=== PATIENT | male | born 1995 | race Caucasian/White ===

== ENCOUNTER 2018-08-12 10:30 | Emergency (ER) | payer OTHER ==
[~2018-08-12] VITALS: Ht 167.6 cm; Wt 68.2 kg
[2018-08-12 10:39] VITALS: BP 158/78; PULSE 88; TEMP 98.6
[2018-08-12] MEDS ORDERED: BONINE25 MG PO (10:54)
== END 2018-08-12 11:03 | disposition home or self-care (01) ==
LOC: COL.ER 10:30
DX: H83.02 Labyrinthitis, left ear (principal); F41.9 Anxiety disorder, unspecified